=== PATIENT | female | born 1985 | race Caucasian/White ===

== ENCOUNTER 2017-01-26 20:24 | Emergency (ER) | payer OTHER ==
[~2017-01-26] VITALS: Ht 170.2 cm; Wt 91.2 kg
[~2017-01-26 20:24] MED LIST: ENDOCET 5-3251 EACH PO; IBUPROFEN800 MG PO; ZOLOFT50 MG PO
[2017-01-26 21:37] LABS: HEMATOCRIT 41.9 % (36.0-46.0); MCH 30.6 PG (29.0-34.0); MCHC 33.2 G/DL (30.0-36.0); MCV 92.3 FL (83-99); MEAN PLAT.VOLUME 8.9 uM^3 (9.5-12.4); PLATELET COUNT 416 K/uL (156-360); RBC DIS.WIDTH-SD 41.1 % (39-53); RED BLOOD COUNT 4.54 M/uL (3.80-5.20); WHITE BLOOD COUNT 11.6 K/uL (4.1-10.2)
[2017-01-26 21:49] LABS: CHLORIDE 105 mEq/L (99-109); POTASSIUM 5.2 mEq/L (3.7-5.4); SODIUM 136 mEq/L (136-147)
[2017-01-26 21:51] LABS: GLUCOSE 91 mg/dL (70-99)
[2017-01-26 21:52] LABS: ANION GAP 5 MEQ/L (2-14)
[2017-01-26 21:53] LABS: TOTAL BILIRUBIN 0.3 mg/dL (0.0-1.0)
[2017-01-26 21:55] LABS: ALKALINE PHOSPHATASE 92 IU/L (3-129); GFR ESTIMATE (CALCULATED) > 59 mL/min/
[2017-01-26 21:56] LABS: UREA NITROGEN (BUN) 13 mg/dL (9-23)
[2017-01-26 22:03] LABS: QUANTITATIVE HCG < 4.0 MIU/ML
[2017-01-26 23:12] VITALS: BP 127/80
[2017-01-26] MEDS ORDERED: FIORICET 50-301 EAC1 PO (23:12)
== END 2017-01-26 23:24 | disposition home or self-care (01) ==
LOC: EME 20:24
DX: R51 Headache (principal); F32.9 Major depressive disorder, single episode, unspecified; F41.9 Anxiety disorder, unspecified; Z88.8 Allergy status to other drugs, medicaments and biological substances
CPT/HCPCS: 70450; 80053; 81003; 84702; 85027; 99281; 99283